=== PATIENT | female | born 1950 | race Caucasian/White ===

== ENCOUNTER → 2017-07-12 | Outpatient (CLI) | payer MEDICARE | END | disposition home or self-care (01) | LOC: MAMMO 08:49 | DX: Z12.31 Encounter for screening mammogram for malignant neoplasm of breast (principal) | CPT/HCPCS: 77063; 77067 ==

== ENCOUNTER → 2018-04-05 | Outpatient (CLI) | payer MEDICARE ==
--- NOTE | 2018-04-05 15:39 | CARD ---
MR#: [id number] Date of Study: 04/05/2018 Ordering Physician: NADINE LOZA, Referring Physician: NADINE LOZA, Tech: Frieda Rajput APPROVED REPORT EXAM: Two-dimensional and M-mode echocardiogram with Doppler and color Doppler. Other Information Quality : AverageHR: 84bpm INDICATION Status/Post [place] RISK FACTORS Hypertension Hyperlipidemia Diabetes Smoking 2D DIMENSIONS RVDd1.6 (2.9-3.5cm)Left Atrium(2D)3.0 (1.6-4.0cm) IVSd0.9 (0.7-1.1cm)Aortic Root(2D)3.3 (2.0-3.7cm) LVDd4.7 (3.9-5.9cm)LVOT Diameter2.2 (1.8-2.4cm) PWd1.0 (0.7-1.1cm)LVDs3.3 (2.5-4.0cm) FS (%) 29.4 %SV58.1 ml LVEF(%)56.2 (>50%) Aortic Valve AoV Peak Carlos.119.4cm/sAoV VTI17.6cm AO Peak GR.5.7mmHgLVOT Peak Carlos.69.1cm/s LVOT VTI 12.64cmAO Mean GR.3mmHg RUTH ANN (VMAX)1.90jy4UKP (VTI)2.76cm2 Mitral Valve MV E Vjezkfvk93.1cm/sMV DECEL NHOR456kn MV A Aruzvbyv36.3cm/sMV JZB44qq E/A Ratio0.6MVA (PHT)3.21cm2 TDI E/Lateral E'6.7E/Medial E'7.5 Pulmonary Valve PV Peak Txoxdhgn01.8cm/sPV Peak Grad.4mmHg Tricuspid Valve TR P. Jkgrbxar551nl/sRAP SUODZEUP0vaWz TR Peak Gr.68kmRhIOVF25ikGh Pulmonary Vein S1 Aplofigp21.4cm/sD2 Ozdvycym62.2cm/s PVa tsglinci262gkwv LEFT VENTRICLE The left ventricle is normal size. There is normal left ventricular wall thickness. The left ventricu lar systolic function is normal. The Ejection Fraction is 55-60%. There is normal LV segmental wall m otion. Transmitral Doppler flow pattern is Grade I-abnormal relaxation pattern. RIGHT VENTRICLE The right ventricle is normal size. There is normal right ventricular wall thickness. The right ventr icular systolic function is normal. ATRIA The left atrium size is normal. The right atrium size is normal. The interatrial septum is intact wit h no evidence for an atrial septal defect or patent foramen ovale as noted on 2-D or Doppler imaging. AORTIC VALVE The aortic valve is normal in structure and function. Doppler and Color Flow revealed trace aortic re gurgitation. There is no significant aortic valvular stenosis. MITRAL VALVE The mitral valve is normal in structure and function. Doppler and Color-flow revealed trace mitral re gurgitation. TRICUSPID VALVE The tricuspid valve is not well visualized. Doppler and Color Flow revealed trace tricuspid regurgita tion. There is no tricuspid valve stenosis. PULMONIC VALVE The pulmonic valve is not well visualized. Doppler and Color Flow revealed trace pulmonic valvular re gurgitation. GREAT VESSELS The aortic root is normal in size. Normal pulmonary venous flow (Doppler). The IVC is normal in size and collapses >50% with inspiration. PERICARDIAL EFFUSION There is no evidence of significant pericardial effusion. Critical Notification Critical Value: No <Conclusion> The left ventricular systolic function is normal. The Ejection Fraction is 55-60%. There is normal LV segmental wall motion. Transmitral Doppler flow pattern is Grade I-abnormal relaxation pattern. Trace mitral regurgitation. Trace tricuspid regurgitation. There is no evidence of significant pericardial effusion. Signed by : Kash Olivarez, Electronically Approved : 04/05/2018 15:38:16
== END | disposition home or self-care (01) ==
LOC: ECHO 13:27
PROVIDERS: ATTEND Internal Medicine Cardiovascular Disease
DX: I24.1 Dressler's syndrome (principal); I10 Essential (primary) hypertension; E11.9 Type 2 diabetes mellitus without complications; E78.5 Hyperlipidemia, unspecified; F17.200 Nicotine dependence, unspecified, uncomplicated
CPT/HCPCS: 93306

== ENCOUNTER → 2018-06-30 | Day surgery (SDC) | payer MEDICARE ==
[~2018-06-30] MED LIST: ALEN70TA6 PO; ASPI-630 PO; CARV25TA PO; FAMO20TA5 PO; GLIP10TA13 PO; GLUC100018 PO; IV RINGERS,LACTATED 1000ML 1,000 ML IV SCH; LIDOCAINE 1% PF 2 ML VIAL. ONE; LISI-338 PO; METF10007 PO; PROPOFOL 20 ML IV ONE; SIMV40TA3 PO
[2018-06-30 10:55] VITALS: BP 140/72
--- NOTE | 2018-06-30 23:39 | CONS ---
DATE OF CONSULTATION: 06/30/2018 REFERRING PHYSICIAN: Dr. Morris Wooten. REASON FOR CONSULTATION: History of colonic polyps as well as diarrhea. HISTORY OF PRESENT ILLNESS: A 67-year-old female with past medical history significant for colonic polyps, diverticulosis, diabetes, GERD, hypertension, hyperlipidemia, status post [place] with stents seen for screening colon exam, the last one being approximately 06/09/2007. She has had persistent diarrhea as well, on metformin 1 gram b.i.d., nonbloody in nature without any change in weight or appetite. With continued issues, she requests additional evaluation. PAST MEDICAL HISTORY: Diabetes, hypertension, hyperlipidemia, heart attack, status post stents, history of colonic polyps, diverticulosis. ALLERGIES: None. MEDICATIONS: Include Fosamax, aspirin, Coreg, famotidine, glipizide, glucosamine, lisinopril, metformin and simvastatin. FAMILY AND SOCIAL HISTORY: Significant for breast cancer with mother and sister, heart attacks with multiple family members, ovarian cancer with grandmother, pancreatic cancer with two grandparents, liver disease with her father, hypertension with a child, diabetes in multiple family members. PAST SURGICAL HISTORY: Status post cholecystectomy. REVIEW OF SYSTEMS: Per records. PHYSICAL EXAMINATION: GENERAL: This is a well-nourished, well-developed female, who is alert and cooperative, in no acute distress. VITAL SIGNS: Temperature 97, pulse 81, respiratory rate 20. HEENT: Normocephalic and atraumatic head. Pupils and extraocular muscles are not tested. Sclerae anicteric. NECK: Supple. LUNGS: Clear. CARDIOVASCULAR: Reveals an S1, S2 without S3, S4 or appreciable murmur. ABDOMEN: Reveals a soft abdomen, normal bowel sounds without appreciable hepatosplenomegaly. EXTREMITIES: Reveals no cyanosis, clubbing, or edema. IMPRESSION: Diarrhea with history of colonic polyps. Surveillance exam is recommended at this time with biopsies. Rule out inflammatory bowel disease, colon cancer and/or collagenous colitis. Risks and benefits were discussed previously. The patient is willing to proceed at this time. WALT BOLANOS MD DR: ADONAY/claude JOB#: [id number] / [id number]
--- NOTE | 2018-07-03 14:13 | PATHOLOGY ---
[facility] Accession Number: [id number] . 01 Material submitted: . PART A: RANDOM COLON BIOPSY PART B: BIOPSY HYPERPLASTIC POLYPS, RECTUM . 01 Clinical history: . Diarrhea . 02 Diagnosis: A. Colonic mucosa, random colon biopsy: - No significant pathologic abnormalities. . B. Colorectal biopsy, rectal polyp: - Hyperplastic polyp, with mild chronic inflammation. (JPM:[facility] 07/03/2018) QTP/07/03/2018 . 02 Comment: Sections of the random colon biopsy reveal multiple segments of colonic mucosa. There is no evidence of a chronic destructive colitis, lymphocytic colitis, or collagenous colitis. . Sections of the rectal polyp biopsy reveal a hyperplastic polyp showing mild chronic inflammation. There are no adenomatous changes or evidence of malignancy. (JPM:[facility] 07/03/2018) . 02 Electronically signed: . Bipin Membreno MD, Pathologist NPI- [id number] . 01 Gross description: . A. Received in formalin labeled "Marianne Stallworth, random colon BX," are multiple segments of colbert soft tissue measuring 2.0 x 0.6 x 0.1 cm in aggregate dimensions. The specimen is filtered and entirely submitted in cassette A1. . B. Received in formalin labeled "Federica, Marianne, BX hyperplastic rectal polyps," is a single segment of colbert soft tissue measuring 0.4 cm in maximum dimension. The specimen is entirely submitted in cassette B1. After careful examination of the specimen vial, no additional tissue was recovered. (TSD; 06/30/2018) TOB/TOB . 02 Pathologist provided ICD-10: K62.1, K62.89 . 02 CPT . 346422, 701332 Specimen Comment: A courtesy copy of this report has been sent to Specimen Comment: [phone], . Specimen Comment: Report sent to / DR MENA Performed at: [address], [place] [id number] MD Danny Collier MD Phone: [phone] [facility]: [facility] [address], [place] [id number] MD Bipin Membreno MD Phone: [phone]
== END | disposition home or self-care (01) ==
LOC: SURG 08:37
PROVIDERS: ATTEND Internal Medicine Gastroenterology
DX: K62.1 Rectal polyp (principal); K64.0 First degree hemorrhoids; K62.89 Other specified diseases of anus and rectum; I10 Essential (primary) hypertension; E11.9 Type 2 diabetes mellitus without complications; K21.9 Gastro-esophageal reflux disease without esophagitis; I25.2 Old myocardial infarction; E78.5 Hyperlipidemia, unspecified; Z86.010 Personal history of colon polyps; Z95.5 Presence of coronary angioplasty implant and graft; Z79.82 Long term (current) use of aspirin; Z79.899 Other long term (current) drug therapy; Z80.3 Family history of malignant neoplasm of breast; Z82.49 Family history of ischemic heart disease and other diseases of the circulatory system; Z83.3 Family history of diabetes mellitus; Z90.49 Acquired absence of other specified parts of digestive tract; Z79.84 Long term (current) use of oral hypoglycemic drugs
CPT/HCPCS: 45380; 88305; J2704

== ENCOUNTER → 2019-08-07 | Outpatient (CLI) | payer MEDICARE ==
[2018-06-30 10:55] VITALS: BP 140/72
[~2019-08-07] MED LIST changes: -IV RINGERS,LACTATED 1000ML 1,000 ML IV SCH; -LIDOCAINE 1% PF 2 ML VIAL. ONE; -PROPOFOL 20 ML IV ONE; +SIMV40TA18 PO; -SIMV40TA3 PO
--- NOTE | 2019-08-07 11:22 | KCIC ---
Right knee 3 views: Reason for examination: Fell with some swelling and pain. No acute fracture or dislocation is seen. The bone density is normal. No abnormal periosteal reaction is seen. There are some mild degenerative changes and some narrowing of the medial joint compartment. There also appears to be a joint effusion. IMPRESSION: Degenerative changes with narrowing of the medial joint compartment. Joint effusion. Electronically signed by: Jenny Em MD (08/07/2019 11:19 AM) [id number]
== END | disposition home or self-care (01) ==
LOC: KCIC 10:17
PROVIDERS: ATTEND Nurse Practitioner Family
DX: M17.11 Unilateral primary osteoarthritis, right knee (principal); M25.461 Effusion, right knee; W19.XXXA Unspecified fall, initial encounter; Y93.89 Activity, other specified; Y92.89 Other specified places as the place of occurrence of the external cause; Y99.8 Other external cause status
CPT/HCPCS: 73562

== ENCOUNTER → 2019-12-28 | Outpatient (CLI) | payer MEDICARE ==
[2018-06-30 10:55] VITALS: BP 140/72
[~2019-12-28] MED LIST changes: -ALEN70TA6 PO; +ALEN70TA60 PO
--- NOTE | 2019-12-28 09:58 | KCIC ---
CT LOW DOSE LUNG SCREENING INDICATION: LUNG CANCER SCREENING, SMOKER OF 41 YEARS. Baseline lung screening. COMPARISON STUDY: None. TECHNIQUE: Unenhanced axial images were obtained through the lungs and upper abdomen using low dose technique. Coronal and sagittal multiplanar reformatted images were also obtained. PQRS compliance statement: One or more of the following individualized dose reduction techniques were utilized for this examination: 1. Automated exposure control 2. Adjustment of the mA and/or kV according to patient size 3. Use of iterative reconstruction technique FINDINGS: Lung Nodules: Couple of small indeterminate pulmonary nodules with service representative nodules as follows: 3 mm right upper lobe nodules (series 6 image 53 and 66). Additional calcified pulmonary granulomas. Lungs and Airways: No pulmonary mass or consolidation. Normal central airways. Pleura: Normal pleural spaces. Heart and Mediastinum: The visualized portions of the thyroid gland are normal in size and attenuation. No axillary or supraclavicular lymphadenopathy. No mediastinal, hilar or retrocrural lymphadenopathy. Normal cardiac size. No pericardial effusion. Coronary artery atherosclerotic disease. Atherosclerosis of the thoracic aorta and branch vessel. Abdomen: The visualized abdominal organs demonstrate no abnormality. Bones and Soft Tissues: Degenerative changes of the spine. IMPRESSION: 1. Few tiny indeterminate pulmonary nodules. Lung-RADS Category: 2 Management Recommendation: Follow up low-dose chest CT in one year. 2. Coronary artery atherosclerotic disease. Electronically signed by: Miky Tineo MD (12/28/2019 9:55 AM) [id number]
== END | disposition home or self-care (01) ==
LOC: KCIC CT 08:38
PROVIDERS: ATTEND Family Medicine
DX: Z12.2 Encounter for screening for malignant neoplasm of respiratory organs (principal); I25.10 Atherosclerotic heart disease of native coronary artery without angina pectoris; I70.0 Atherosclerosis of aorta; F17.210 Nicotine dependence, cigarettes, uncomplicated
CPT/HCPCS: G0297

== ENCOUNTER → 2020-10-09 | Outpatient (CLI) | payer MEDICARE ==
[2018-06-30 10:55] VITALS: BP 140/72
[~2020-10-09] MED LIST changes: -ALEN70TA60 PO; +ALEN70TA71 PO; -LISI-338 PO; +LISI-517 PO
--- NOTE | 2020-10-09 12:53 | RAD ---
EXAM: BILATERAL DIGITAL 3D SCREENING MAMMOGRAPHY. HISTORY: Routine mammographic screening. TECHNIQUE: Bilateral digital 3D and tomographic images were obtained in CC and MLO projections. Compu ter-aided detection was applied. COMPARISON: 07/12/2017, 10/10/2015. COMPOSITION: A. The breasts are almost entirely fatty. FINDINGS: A density laterally and superiorly on the right is stable and likely benign. Scattered and coarse calcifications are benign. There are no suspicious masses, microcalcifications or architectura l distortion. The parenchymal pattern is stable. BI-RADS CATEGORY 2: Benign. RECOMMENDATION: 1. Routine screening mammography in one year. If mammography demonstrates dense breast tissue (heterogenously dense or extremely dense, category C or D), which could hide abnormalities, and if other risk factors for breast cancer have been identifi ed, supplemental screening tests that may be suggested by the ordering physician may be of benefit. D ense breast tissue, in and of itself, is a relatively common condition. Therefore, this information i s not provided to cause undue concern, but rather to raise awareness and to promote discussion with t he referring physician regarding the presence of other risk factors, in addition to dense breast tiss ue. The results of this mammography examination is provided to the patient and referring physician. T he patient should contact their referring physician if any questions or concerns exist regarding this report. PQRS compliance statement - Patient information was entered into a reminder system with a target due date for the next mammogram. "Our facility is accredited by the [employer] Mammography Program." Electronically signed by: Carlin Poole MD (10/09/2020 12:50 PM) [email or web address]
== END ==
LOC: MAMMO 10:55
PROVIDERS: ATTEND Family Medicine
DX: Z12.31 Encounter for screening mammogram for malignant neoplasm of breast (principal)
CPT/HCPCS: 77063; 77067

== ENCOUNTER → 2020-12-08 | Outpatient (CLI) | payer MEDICARE ==
[2018-06-30 10:55] VITALS: BP 140/72
--- NOTE | 2020-12-08 16:32 | KCIC ---
EXAM: CT CHEST WITHOUT CONTRAST (LDCT LUNG CANCER SCREENING). HISTORY: Risk factors for pulmonary malignancy. smoker 40+ years. TECHNIQUE: CT of the chest was performed without intravenous contrast using a low-dose lung screening protocol. Findings analysis is based on ACR Lung-RADS v1.1. *One or more of the following individual ized dose reduction techniques were utilized for this examination: 1. Automated exposure control. 2. Adjustment of the mA and/or kV according to patient size. 3. Use of iterative reconstruction technique. COMPARISON: December 28 2019. FINDINGS: Nodules: No clinically suspicious nodules. Other findings: Images of the upper abdomen reveal no acute abnormality. Bone windows reveal no suspi cious lesions. There are no pathologically enlarged mediastinal or axillary lymph nodes. There is no pleural or bianca cardial effusion. The heart is not enlarged. No pulmonary parenchymal process is identified. There is coronary artery calcifications. There is a simple cyst arising exophytically from the left k idney. There is evidence of prior cholecystectomy. IMPRESSION/RECOMMENDATION: 1. ACR Lung-RADS category: 1. Normal. . 2. Continue annual screening with LDCT in 12 months. Electronically signed by: Codey Pelletier III, MD (12/08/2020 4:29 PM) [facility]
== END ==
LOC: KCIC CT 10:47
PROVIDERS: ATTEND Family Medicine
DX: Z12.2 Encounter for screening for malignant neoplasm of respiratory organs (principal); I25.10 Atherosclerotic heart disease of native coronary artery without angina pectoris; N28.1 Cyst of kidney, acquired; F17.210 Nicotine dependence, cigarettes, uncomplicated; Z90.49 Acquired absence of other specified parts of digestive tract
CPT/HCPCS: 71271